=== PATIENT | female | born 1985 | race Caucasian/White ===

== ENCOUNTER 2017-03-07 13:39 | Outpatient (CLI) | payer OTHER ==
--- NOTE | 2017-03-07 14:59 | ULT ---
RIGHT BREAST ULTRASOUND: COMPARISON: 02/01/17. HISTORY: Prior right breast abscess status post drainage in the emergency department. The patient was cultur ed and purulent material was drained from the right breast. The patient reports decrease in the jeffery n but still feels a mass-like area in the right breast. TECHNIQUE: Multiplanar, rodas scale, and color Doppler images were obtained in a targeted ultrasound of the [facility] t breast. FINDINGS: The previously seen fluid collection is no longer present as it has been drained. No focal fluid co llection is seen. No suspicious shadowing or suspicious mass is present. IMPRESSION: BI-RADS category 2 - benign findings. Annual screening mammography is recommended at the age of 39. The patient was told to continue closely watching her right breast and should the right breast mas s become bigger, to return for additional imaging. POS: [facility]
== END 2017-03-07 13:40 | disposition home or self-care (01) ==
LOC: ULT 13:39
PROVIDERS: ATTEND Family Medicine
DX: N63 Unspecified lump in breast (principal)

== ENCOUNTER 2017-05-22 09:59 | Day surgery (SDC) | payer OTHER ==
[2017-05-21 13:20] VITALS: BMI 26.3
--- NOTE | 2017-05-22 13:55 | RAD ---
RADIOGRAPH SKULL 3 VIEW: DATE: 05-22-17 HISTORY: 32-year-old female scheduled for MRI who has a CONTENT COORDINATOR shunt catheter that was [place] an outside city. No records are available. This is an MRI clearance safety exam. FINDINGS: There is a CONTENT COORDINATOR shunt catheter entering through a left parietal david hole. This is a programmable bethanie ter. There are additional tiny metallic dermal implants lateral to the left cheek. IMPRESSION: 1. Programmable ventriculoperitoneal shunt catheter. The MRI examination must be postponed until the patient has an appointment with neurosurgery to have the CONTENT COORDINATOR shunt catheter reprogrammed on the same d ay after the MRI examination. 2. Dermal piercing at the left cheek. During the MRI examination, a cold compress should be applied a s a heat sink. POS: [facility]
== END 2017-05-22 13:00 | disposition home or self-care (01) ==
LOC: SDC/OP 09:59
PROVIDERS: ATTEND Family Medicine
DX: G93.5 Compression of brain (principal); I10 Essential (primary) hypertension; G43.909 Migraine, unspecified, not intractable, without status migrainosus; F11.20 Opioid dependence, uncomplicated; Z79.899 Other long term (current) drug therapy; Z98.890 Other specified postprocedural states; Z95.828 Presence of other vascular implants and grafts; Z88.1 Allergy status to other antibiotic agents
CPT/HCPCS: 70250; 70553

== ENCOUNTER 2017-05-29 08:41 | Outpatient (CLI) | payer OTHER ==
--- NOTE | 2017-05-29 10:44 | CT ---
EXAM: PRE AND POST CONTRAST HEAD CT HISTORY: Shunt placement in 2005. Mild Chiari malformation. COMPARISON: None. TECHNIQUE: Noncontrast head CT is performed from skull base to skull vertex. 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 Th ere is a right-sided ventriculoperitoneal shunt catheter. Distal tip appears to be near the frontal horn of the right lateral ventricle. Ventricular system does not appear to be dilated. Rather, the ventricular system appears to be somewhat decompressed. There is no midline shift. Basilar cisterns are patent. No parenchymal hemorrhage or extraaxial hematoma. Cortical rodas-white matter different iation is preserved. Calvarium is intact. Adequate aeration of the sinuses and mastoid air cells. POST-CONTRAST HEAD CT: Cortical rodas-white matter differentiation continues to be preserved. No pathologic enhancement of t he brain parenchyma. IMPRESSION: Unremarkable pre- and post-contrast head CT, in terms of acute abnormality. There is decompression o f the ventricular system. CONTENT ARCHITECT shunt catheter is noted. POS: [facility]
[2017-05-29] MEDS ORDERED: Iopamidol 370 76% 100 ML VIAL ONE (11:45)
== END 2017-05-29 08:42 | disposition home or self-care (01) ==
LOC: CT 08:41
PROVIDERS: ATTEND Family Medicine
DX: G93.5 Compression of brain (principal); R51 Headache; G93.89 Other specified disorders of brain
CPT/HCPCS: 70470

== ENCOUNTER 2017-08-04 08:50 | Emergency (ER) | payer OTHER ==
[2017-08-04 11:50] LABS: #Basophils 0.1 thou/uL (0.0-0.2); #Eosinphils 0.1 thou/uL (0.0-0.7); #Lymphocytes 1.9 thou/uL (1.20-3.40); #Monocytes 0.6 thou/uL (0.11-0.59); #Neutrophils 4.4 thou/uL (1.40-6.50); %Basophils 0.8 % (0.0-1.0); %Lymphocytes 26.5 % (21.0-51.0); %Neutrophils 62.7 % (42.0-75.0); Hemoglobin 14.9 g/dL (12.0-16.0); Mean Corpuscular HGB CONC 33.8 g/dL (32.0-36.0); Mean Corpuscular Hemoglobin 30.4 pg (27.0-31.0); Mean Corpuscular Volume 90.1 fl (81.0-99.0); Mean Platelet Volume 8.3 fL (7.4-10.4); Platelet Count 264 thou/uL (130-400); RBC Distribution Width 11.9 % (11.5-14.5); Red Blood Cell (RBC) Count 4.91 mill/uL (4.20-5.40)
[2017-08-04 12:10] LABS: ALT (SGPT) 12 U/L (8-55); AST (SGOT) 16 U/L (5-34); Acetaminophen Less than 6.0 mcg/mL (10.0-30.0); Albumin 4.5 g/dL (3.5-5.0); Alcohol Less than 10 mg/dL (Less than 10); Alkaline Phosphatase 68 U/L (40-150); Anion Gap 11 mmol/L (10-20); BHCG - Serum Negative (NEGATIVE); BUN (Urea Nitrogen) 13 mg/dL (7.0-18.7); Bilirubin, Total 0.6 mg/dL (0.2-1.2); Calc. Creatinine Clearance 0 mL/min (70-130); Calcium 10.3 mg/dL (7.8-10.44); Carbon Dioxide 26 mmol/L (22-29); Chloride 105 mmol/L (98-107); Estimated GFR-MDRD 69; Globulin 3.5 g/dL (2.4-3.5); Glucose 101 mg/dL (70-105); Pregs Control Background? CLEAR/WHITE (CLR/WHITE); Pregs Control Bar Appear? YES (CONTROL BAR); Salicylate Less than 8.0 mg/dL (15.0-30.0); Sodium 138 mmol/L (136-145)
--- NOTE | 2017-08-04 12:49 | CT ---
CT BRAIN WITHOUT CONTRAST: Date: 08/04/17 HISTORY: Syncope. FINDINGS: Comparison made with exam of 05/29/17. Right-sided ventriculoperitoneal shunt catheter is unchanged in position with distal tip near the fro ntal horn of the right lateral ventricle. The ventricular system is stable in size with continued dec ompression of the right lateral ventricle. No infarct, hemorrhage, midline shift, or abnormal extra-a xial fluid collections are seen. The bony calvarium is intact. The visualized paranasal sinuses and m astoid air cells are well aerated. 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 IMPRESSION: Stable exam. No acute process. POS: [facility]
--- NOTE | 2017-08-04 13:06 | RAD ---
SHUNTOGRAM: Date: 02/20/18 HISTORY: Syncope. FINDINGS: Six views are provided. Lateral radiograph of the skull demonstrates a SSDS MK 2 ADVANCED OPERATOR shunt tube inserted via pos terior approach. Catheter tubing appears intact overlying the region of the calvarium and neck. The c atheter tubing overlies the right neck and right aspect of the calvarium. The tubing is intact as it overlies the right aspect of the hemithorax. The catheter tubing curls within the left upper quadrant and terminates in the lateral aspect of the left hemipelvis. No evidence for shunt discontinuity. IMPRESSION: Intact SSDS MK 2 ADVANCED OPERATOR shunt tubing. POS: [facility]
[2017-08-04 13:40] LABS: Amphetamine Not Detected (NotDetected); Barbiturates Screen Not Detected (NotDetected); Benzodiazepine Screen Not Detected (NotDetected); Cocaine Metabolite Screen Not Detected (NotDetected); Medtox Control Line Valid? VALID (VALID); Medtox Reader # READER 4; Methadone Not Detected (NotDetected); Methamphetamine Not Detected (NotDetected); Opiate Screen Not Detected (NotDetected); Oxycodone Screen Not Detected (NotDetected); Phencyclidine (PCP) Not Detected (NotDetected); THC/Cannabinoid Screen Not Detected (NotDetected); Tricyclic Screen Detected (NotDetected)
--- NOTE | 2017-08-11 15:04 | EKG ---
Test Reason : Blood Pressure : / mmHG Vent. Rate : 079 BPM Atrial Rate : 079 BPM P-R Int : 132 ms QRS Dur : 080 ms QT Int : 376 ms P-R-T Axes : 060 054 033 degrees QTc Int : 431 ms Normal sinus rhythm Normal ECG Confirmed by EZ JACKSON ([id number]), visual effects editor TEDDY NEGRON ([id number]) on 08/11/2017 3:03:52 PM Referred By: Confirmed By:EZ JACKSON
== END 2017-08-04 15:21 ==
LOC: ERS 08:50
DX: R55 Syncope and collapse (principal); I10 Essential (primary) hypertension; Z79.899 Other long term (current) drug therapy
CPT/HCPCS: 36415; 70450; 75809; 80053; 80306; 80307; 84703; 85025; 93005

== ENCOUNTER 2017-09-18 10:09 | Day surgery (SDC) | payer OTHER ==
[2017-09-17 14:28] VITALS: BMI 26.5
[~2017-09-18 10:09] MED LIST: Gadobenate Dimeglumine 529 MG/1 ML (20ML VIAL) ONE
--- NOTE | 2017-09-18 14:06 | MRI ---
BRAIN MRI WITH AND WITHOUT CONTRAST: HISTORY: Arnold-Chiari syndrome. Generalized headache x8 months. The patient has a ELECTRICAL ENGINEERING DRAFTSPERSON shunt. COMPARISON: None. TECHNIQUE: A brain MRI is performed with and without intravenous Gadolinium administration. Multisequential, mu ltiplanar imaging is performed. FINDINGS: There is metallic susceptibility artifact secondary to a reservoir for a ELECTRICAL ENGINEERING DRAFTSPERSON shunt catheter along the right parietal convexity. There are linear Hypointensities along the right occipital temporal and pa rietal convexity on the gradient echo sequence, which may be artifactual. Small foci of hemosiderin deposition cannot be completely excluded. There is a ELECTRICAL ENGINEERING DRAFTSPERSON shunt catheter via the right parietal approa ch with the distal tip in the frontal horn of the right lateral ventricle. The ventricular system is decompressed, suggesting over-shunting. No parenchymal mass, mass effect, or midline shift. Brain volume is age appropriate. Cortical rodas white matter differentiation is preserved. No significant T2 or FLAIR white matter hyperintensities. Central arterial flow voids are maintained. No obvious restricted diffusion. No pathologic enhancement of the brain parenchyma. Mild mucosal thickening involving the paranasal sinuses. Appropriate marrow signal intensity of the calvarium. IMPRESSION: 1. Ventriculoperitoneal shunt catheter, as defined above. Decompression of the ventricular system, suggesting over-shunting. 2. Linear hypointensities noted on the axial gradient echo sequence, which are presumed to be artifa ctual. The possibility of hemosiderin deposition cannot be completely excluded. POS: [facility]
[2017-09-18] MEDS ORDERED: Lidocaine 1% PF 5 ML VIAL ONE (14:18)
[2017-09-18] MEDS ORDERED: Dexamethasone 20 MG/5 ML VIAL ONE (14:18)
[2017-09-18] MEDS ORDERED: PROPOFOL 200 MG/20 ML VIAL ONE (14:18)
== END 2017-09-18 15:35 ==
LOC: SDC/OP 10:09
PROVIDERS: ATTEND Neurological Surgery
DX: Q07.02 Arnold-Chiari syndrome with hydrocephalus (principal); I10 Essential (primary) hypertension; Z88.1 Allergy status to other antibiotic agents
CPT/HCPCS: 70553; A9579; J1100; J2001; J2704